=== PATIENT | female | born 1965 | race Asian ===

== ENCOUNTER 2017-01-07 15:32 | Emergency (ER) | payer BC ==
[~2017-01-07] VITALS: Ht 165.1 cm; Wt 86.2 kg
--- NOTE | ~2017-01-07 | CR172 ---
[facility] A Service of [facility] RADIOLOGY TEXT RESULTS PATIENT: ANGELITO ROYAL LOCATION: CFTX : 69 UNIT #: [id number] AGE: [address]: Yuly Coleman SEX: F ORDER DR: [id number] [facility] [address] [place], [place] [address] [id number] MR#: [id number] Acc #: [id number] NAME: ANGELITO ROYAL : 1965 SEX: F STUDY DATE/TIME: 01/07/2017 17:02 UNIT: [facility] ROOM: STUDY DESCRIPTION: CR Knee 3 Views Lt Attending Physician: Yuly Coleman P.A.-C. Ordering Physician: Yuly Coleman P.A.-C. Primary Care Physician: No Primary Care Physician MEDICAL IMAGING REPORT This report is preliminary unless electronic signature is present EXAM Left knee 01/07/2017. HISTORY 51-year-old female with left knee pain for 3 weeks. No specific injury. COMPARISON None. FINDINGS 3 views of the left knee demonstrate no acute fracture or dislocation. Trace effusion. Joint spaces are adequately maintained. Soft tissues are unremarkable. IMPRESSION 1. No evidence of acute fracture or dislocation. 2. Trace joint effusion, nonspecific. Dictated by... Javon Kong M.D. THIS IS AN ELECTRONICALLY VERIFIED REPORT Javon Kong M.D. at 01/08/2017 10:36 AM MORTEZA/cristi TD: 01/08/2017 09:25 JOB #: [id number] MEDICAL IMAGING REPORT Page 1 of 1 COPY
== END 2017-01-07 18:00 | disposition home or self-care (01) ==
LOC: CED 15:32 → CFTX 15:32
DX: M25.462 Effusion, left knee (principal); I10 Essential (primary) hypertension; Z88.2 Allergy status to sulfonamides
CPT/HCPCS: 29530; 73562; 99283

== ENCOUNTER 2017-01-18 11:39 | Emergency (ER) | payer BC ==
[~2017-01-18] VITALS: Ht 165.1 cm; Wt 88.5 kg
--- NOTE | ~2017-01-18 | CR170 ---
[facility] A Service of [facility] RADIOLOGY TEXT RESULTS PATIENT: ANGELITO ROYAL LOCATION: CFTX : 69 UNIT #: [id number] AGE: [address]: Anisha Chavez APRN SEX: F ORDER DR: [id number] [facility] [address] [place], [place] [address] [id number] E MR#: [id number] Acc #: [id number] NAME: ANGELITO ROYAL : 1965 SEX: F STUDY DATE/TIME: 01/18/2017 12:28 UNIT: [facility] ROOM: STUDY DESCRIPTION: CR Knee 2 Views Rt Attending Physician: Anisha Chavez A.P.R.N. Ordering Physician: Anisha Chavez A.P.R.N. Primary Care Physician: No Primary Care Physician MEDICAL IMAGING REPORT This report is preliminary unless electronic signature is present EXAM Right knee, 2 views. COMPARISON November 23, 2009. INDICATIONS 51-year-old female with right knee pain since yesterday. No known injury. FINDINGS No suprapatellar effusion. Minimal osteophyte formation at both poles of the patella. Bones are anatomically aligned. No evidence of acute fracture or osseous destruction. IMPRESSION No acute fracture, dislocation or suprapatellar effusion. Minimal degenerative change at the patella. Dictated by... Ronaldo Hidalgo M.D. THIS IS AN ELECTRONICALLY VERIFIED REPORT Ronaldo Hidalgo M.D. at 01/20/2017 9:32 PM Mathieu TD: 01/18/2017 15:13 JOB #: [id number] MEDICAL IMAGING REPORT Page 1 of 1 COPY
== END 2017-01-18 13:12 | disposition home or self-care (01) ==
LOC: CED 11:39 → CFTX 11:39
DX: M25.561 Pain in right knee (principal); I10 Essential (primary) hypertension; M19.90 Unspecified osteoarthritis, unspecified site; Z88.2 Allergy status to sulfonamides
CPT/HCPCS: 73560; 99283

== ENCOUNTER 2017-01-31 21:14 | Emergency (ER) | payer BC | END 2017-01-31 22:01 | disposition left against medical advice (07) | LOC: CED 21:14 | DX: Z53.21 Procedure and treatment not carried out due to patient leaving prior to being seen by health care provider (principal) ==